=== PATIENT | male | born 1995 | race Caucasian/White ===

== ENCOUNTER 2018-09-23 21:59 | Emergency (ER) | payer SELFPAY ==
[~2018-09-23] VITALS: Ht 172.7 cm; Wt 81.6 kg
[2018-09-23 22:03] VITALS: BP 143/78
--- NOTE | 2018-09-23 22:18 | NUR ---
PT TO LOBBY WITH VSS.
--- NOTE | 2018-09-23 23:43 | NUR ---
2343---1ST CALL, PATIENT LEFT WITHOUT BEING SEEN BY DR. MEDELLIN. NO FURTHER CARE PROVIDED FOR PATIENT. 2353---2ND CALL, NO ANSWER 4---3RD CALL, NO ANSWER.
== END 2018-09-23 23:43 | disposition left against medical advice (07) ==
LOC: MED 21:59
DX: M79.672 Pain in left foot (principal); Z53.21 Procedure and treatment not carried out due to patient leaving prior to being seen by health care provider

== ENCOUNTER 2022-01-25 00:43 | Emergency (ER) | payer MEDICAID ==
[~2022-01-25] VITALS: Ht 175.3 cm; Wt 77.1 kg
[2022-01-25 00:43] VITALS: BP 131/83
--- NOTE | 2022-01-25 00:43 | NUR ---
TO BED AMBULATORY WITH C/O LEFT FOOT PAIN AND SWELLING FOR A YEAR.
[2022-01-25] MEDS ORDERED: VANCOMYCIN 1,000 MG in DEXTROSE 5% 250 ML IV ONE (00:50)
[2022-01-25] MEDS ORDERED: NACL 0.9% 2,500 ML IV ONE (00:50)
[2022-01-25] MEDS ORDERED: PIPERACILLIN/TAZOBACTAM 3.375 GM in DEXTROSE 5% 50 ML IV ONE (00:50)
--- NOTE | 2022-01-25 01:00 | NUR ---
RECEIVED IN BED 1VIA W/C AFTER BEING BROUGHT IN BY PD. C/O LLE SWELLING AND INFECTION. ULCER AND NECROSIS NOTED TO LEFT HEEL WITH MUCH SWELLING TO LLE.
[2022-01-25 01:06] LABS: BASOPHILS % (AUTO) 0.4 % (0.0-2.0); EOSINOPHILS # (AUTO) 0.1 K/uL (0-0.4); EOSINOPHILS % (AUTO) 1.3 % (0.0-4.0); HEMATOCRIT 30.1 % (36-52); HEMOGLOBIN 9.4 g/dL (12.0-18.0); LYMPHOCYTES % (AUTO) 26.3 % (20.5-51.1); MEAN CORPUSCULAR HEMOGLOBIN 21 pg (27-31); MEAN CORPUSCULAR HGB CONC 31 g/dL (33-37); MONOCYTES # (AUTO) 0.7 K/uL (0.8-1.0); MONOCYTES % (AUTO) 9.5 % (1.7-9.3); NEUTROPHILS # (AUTO) 4.9 K/uL (1.8-7.7); NEUTROPHILS % (AUTO) 62.5 % (42.2-75.2); PLATELET COUNT (AUTO) 608 K/uL (140-450); RED BLOOD CELL COUNT(AUTO) 4.57 MIL/uL (4.20-6.10); RED CELL DISTRIBUTION WIDTH 18.9 % (11.6-13.7); WHITE BLOOD COUNT (AUTO) 7.8 K/uL (4.8-10.8)
[2022-01-25 01:22] LABS: ALBUMIN 2.6 g/dL (3.4-5.0); ANION GAP 9.9 (8-16); CARBON DIOXIDE 29.6 mmol/L (21-32); CREATININE 0.8 mg/dL (0.6-1.3); POTASSIUM 3.5 mmol/L (3.5-5.1); TOTAL BILIRUBIN 0.3 mg/dL (0.0-1.0)
--- NOTE | 2022-01-25 01:55 | NUR ---
REQUESTS TO GO TO THE BATHROOM. PT STATES NEED TO HAVE BM. UP TO BR VIA W/C
--- NOTE | 2022-01-25 02:05 | NUR ---
PT DID NOT RETURN FROM BATHROOM. PT ELOPED
[2022-01-25 02:08] VITALS: BP 131/83
--- NOTE | 2022-01-25 02:08 | NUR ---
PATIENT ELOPED FROM FACILITY. DISCHARGE INSTRUCTIONS NOT GIVEN TO PATIENT. DR. mccray NOTIFIED.
== END 2022-01-25 02:08 | disposition left against medical advice (07) ==
LOC: MED 00:43
DX: M86.8X7 Other osteomyelitis, ankle and foot (principal); Z20.822 Contact with and (suspected) exposure to COVID-19; F17.210 Nicotine dependence, cigarettes, uncomplicated; F12.90 Cannabis use, unspecified, uncomplicated
CPT/HCPCS: 36415; 71045; 73700; 80053; 83605; 85025; 87040; 87426; 99285; Q0092

== ENCOUNTER 2022-01-30 22:46 | Emergency (ER) | payer MEDICAID ==
[~2022-01-30] VITALS: Ht 172.7 cm; Wt 77.1 kg
--- NOTE | 2022-01-30 22:46 | NUR ---
PT [employer], TAKEN TO CHAIR
[2022-01-30 22:47] VITALS: BP 163/102
--- NOTE | 2022-01-30 22:47 | NUR ---
ERMD ASSESSING IN [facility]
--- NOTE | 2022-01-30 22:52 | NUR ---
LAB AT BEDSIDE.
--- NOTE | 2022-01-30 23:03 | NUR ---
XRAY AT BEDSIDE
--- NOTE | 2022-01-30 23:03 | NUR ---
COVID/ERMA SWAB COLLECTED AND HANDED TO TITLE CLERK [employer]
[2022-01-30 23:10] LABS: BASOPHILS % (AUTO) 0.5 % (0.0-2.0); EOSINOPHILS # (AUTO) 0.1 K/uL (0-0.4); EOSINOPHILS % (AUTO) 0.7 % (0.0-4.0); HEMATOCRIT 31.3 % (36-52); LYMPHOCYTES # (AUTO) 1.6 K/uL (2.0-11.5); LYMPHOCYTES % (AUTO) 17.6 % (20.5-51.1); MEAN CORPUSCULAR HEMOGLOBIN 21 pg (27-31); MEAN CORPUSCULAR HGB CONC 32 g/dL (33-37); MEAN CORPUSCULAR VOLUME 66.1 fL (80-94); MONOCYTES # (AUTO) 0.7 K/uL (0.8-1.0); MONOCYTES % (AUTO) 7.1 % (1.7-9.3); NEUTROPHILS # (AUTO) 6.8 K/uL (1.8-7.7); NEUTROPHILS % (AUTO) 74.1 % (42.2-75.2); PLATELET COUNT (AUTO) 847 K/uL (140-450); RED BLOOD CELL COUNT(AUTO) 4.74 MIL/uL (4.20-6.10); WHITE BLOOD COUNT (AUTO) 9.2 K/uL (4.8-10.8)
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
[2022-01-30 23:38] LABS: ALBUMIN 2.9 g/dL (3.4-5.0); ANION GAP 13.1 (8-16); CARBON DIOXIDE 28.5 mmol/L (21-32); CREATININE 0.8 mg/dL (0.6-1.3); POTASSIUM 4.6 mmol/L (3.5-5.1); TOTAL BILIRUBIN 0.1 mg/dL (0.0-1.0)
--- NOTE | 2022-01-30 23:54 | NUR ---
PT W/C TO RR AND BACK TO BED.
--- NOTE | 2022-01-31 00:21 | NUR ---
pt pulled iv out and began getting dressed.
[2022-01-31 00:48] VITALS: BP 163/102
--- NOTE | 2022-01-31 00:48 | NUR ---
PATIENT ELOPED FROM FACILITY. DISCHARGE INSTRUCTIONS NOT GIVEN TO PATIENT. DR. ANTHONY NOTIFIED.
== END 2022-01-31 00:48 | disposition left against medical advice (07) ==
LOC: MED 22:46
DX: L03.116 Cellulitis of left lower limb (principal); Z20.822 Contact with and (suspected) exposure to COVID-19; M86.9 Osteomyelitis, unspecified; R00.0 Tachycardia, unspecified
CPT/HCPCS: 36415; 73630; 80053; 83605; 85025; 85651; 86140; 87040; 87426; 99284; Q0092

== ENCOUNTER 2022-04-24 00:23 | Emergency (ER) | payer MEDICAID ==
[~2022-04-24] VITALS: Ht 177.8 cm; Wt 79.4 kg
--- NOTE | 2022-04-24 00:23 | NUR ---
JANUARY ARREDONDO, PREBOOK. TAKEN TO CHAIR C
[2022-04-24 00:53] VITALS: BP 144/83
[2022-04-24 01:47] VITALS: BP 128/85
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
--- NOTE | 2022-04-24 01:47 | NUR ---
PATIENT [facility]. PATIENT EXAMINED BY DR. PERRY. PATIENT MEDICALLY CLEARED AND RELEASED IN CUSTODY IN STABLE CONDITION. ORIGINAL PRE-BOOK FORM GIVEN TO OFFICER MECHE #[id number].
== END 2022-04-24 01:47 ==
LOC: MED 00:23
DX: L03.116 Cellulitis of left lower limb (principal); Z02.89 Encounter for other administrative examinations
CPT/HCPCS: 99283

== ENCOUNTER 2022-05-12 16:55 | Emergency (ER) | payer MEDICAID ==
[~2022-05-12] VITALS: Ht 162.6 cm; Wt 63.5 kg
[2022-05-12 17:37] VITALS: BP 122/80
--- NOTE | 2022-05-12 18:50 | NUR ---
PT TO BED 3 VIA WC
[2022-05-12] MEDS ORDERED: PIPERACILLIN/TAZOBACTAM 3.375 GM in DEXTROSE 5% 50 ML IV ONE (19:05)
[2022-05-12] MEDS ORDERED: VANCOMYCIN 1,000 MG in DEXTROSE 5% 250 ML IV ONE (19:05)
[2022-05-12] MEDS ORDERED: NACL 0.9% 1,000 ML IV ONE (19:05)
[2022-05-12] MEDS ORDERED: ACETAMINOPHEN 325 MG TAB PO ONE (19:05)
[2022-05-12] MEDS ORDERED: PIPERACILLIN/TAZOBACTAM 3.375 GM VIAL IV ONE (19:07)
[2022-05-12 19:19] LABS: BASOPHILS # (AUTO) 0.1 K/uL (0.00-0.22); BASOPHILS % (AUTO) 0.4 % (0.0-2.0); EOSINOPHILS % (AUTO) 0.2 % (0.0-4.0); HEMATOCRIT 26.3 % (36-52); HEMOGLOBIN 8.4 g/dL (12.0-18.0); LYMPHOCYTES # (AUTO) 1.1 K/uL (2.0-11.5); LYMPHOCYTES % (AUTO) 7.5 % (20.5-51.1); MEAN CORPUSCULAR HEMOGLOBIN 21 pg (27-31); MEAN CORPUSCULAR HGB CONC 32 g/dL (33-37); MEAN CORPUSCULAR VOLUME 64.4 fL (80-94); MONOCYTES # (AUTO) 0.7 K/uL (0.8-1.0); MONOCYTES % (AUTO) 4.9 % (1.7-9.3); PLATELET COUNT (AUTO) 798 K/uL (140-450); RED BLOOD CELL COUNT(AUTO) 4.09 MIL/uL (4.20-6.10); RED CELL DISTRIBUTION WIDTH 19.7 % (11.6-13.7); WHITE BLOOD COUNT (AUTO) 14.9 K/uL (4.8-10.8)
[2022-05-12] MEDS ORDERED: NACL 0.9% 2,000 ML IV ONE (19:30)
[2022-05-12 19:36] LABS: PROTHROMBIN TIME 11.8 secs (10.8-13.4)
[2022-05-12 19:40] LABS: ALBUMIN 2.1 g/dL (3.4-5.0); ANION GAP 9.5 (8-16); CARBON DIOXIDE 30.4 mmol/L (21-32); CREATININE 0.9 mg/dL (0.6-1.3); POTASSIUM 3.9 mmol/L (3.5-5.1); TOTAL BILIRUBIN 0.3 mg/dL (0.0-1.0)
[2022-05-12] MEDS ORDERED: MORPHINE SULFATE 4 MG/ML SYR IVP ONE (19:45)
[2022-05-12] MEDS ORDERED: ONDANSETRON 4 MG/2 ML VIAL IVP ONE (19:45)
--- NOTE | 2022-05-12 19:45 | NUR ---
is awake, alert. resting comfortabloe. lle swollen and large, warm to touch
--- NOTE | 2022-05-12 20:00 | NUR ---
Ultrasound at bedside.
[2022-05-12] MEDS ORDERED: VANCOMYCIN 1,000 MG VIAL ONE (20:07)
--- NOTE | 2022-05-12 20:08 | NUR ---
X-Ray at bedside.
--- NOTE | 2022-05-12 23:20 | NUR ---
Isha judd in EDM - 05/12/22 at 2324 by MEDINA Patient discharged with v/s stable. Written and verbal after care instructions given and explained to parent/guardian. Parent/Guardian verbalized understanding. Carried. All questions addressed prior to discharge. Advised to follow up with PMD.
--- NOTE | 2022-05-12 23:49 | NUR ---
CALL TO GIVE REPORT, NURSE ON BREAK , WILL RETURN CALL IN 30 MINUTES
[2022-05-13] VITALS: BP 98/54
--- NOTE | 2022-05-13 00:35 | NUR ---
[facility] TRANSPORT AT BEDSIDE
--- NOTE | 2022-05-13 00:40 | NUR ---
[facility] IS HERE. PT NOW SAYING HE DOES NOT WANT TO GO TO [facility], IS WANTING TO SIGN AMA. DISCUSSED WITH PT, POSSIBLE OUTCOMES INCLUDING LOSS OF LIMB OR . PT EXPRESSES UNDERSTANDING AND continues to say he is leaving [facility]
--- NOTE | 2022-05-13 00:58 | NUR ---
PT SIGNED AMA FORMS AT THIS TIME
== END 2022-05-13 00:58 | disposition left against medical advice (07) ==
LOC: MED 16:55
DX: A41.9 Sepsis, unspecified organism (principal); Z20.822 Contact with and (suspected) exposure to COVID-19; L03.116 Cellulitis of left lower limb; I48.20 Chronic atrial fibrillation, unspecified; D64.9 Anemia, unspecified
CPT/HCPCS: 36415; 71045; 73620; 80053; 82550; 82553; 83605; 83874; 83880; 84484; 85025; 85610; 85730; 87040; 87426; 93971; 96365; 96367; 96375; 99291; 99292; J2270; J2405; J2543; J3370; J7030; Q0092

== ENCOUNTER 2022-05-20 11:52 | Emergency (ER) | payer MEDICAID ==
[~2022-05-20] VITALS: Ht 177.8 cm; Wt 81.6 kg
--- NOTE | 2022-05-20 12:02 | NUR ---
PT TO ER BED 3 VIA W/C WITH PD
[2022-05-20 12:03] VITALS: BP 127/77
--- NOTE | 2022-05-20 12:56 | NUR ---
ER/PA AT BEDSIDE FOR EVAL
--- NOTE | 2022-05-20 13:20 | NUR ---
27 y/o male [facility] for Pre-Book for wound check. Patient is noted with an open wound to right heel. Per patient swelling and pain started 2 weeks ago. Per patient, he had a foot surgery 1 year ago and has had s/s of infection since surgery. Medical History: Osteomylitis NKDA
--- NOTE | 2022-05-20 13:29 | NUR ---
Obtained ERMA specimen, walked to lab. Handed to CPT Idalia.
--- NOTE | 2022-05-20 13:46 | NUR ---
Lab at bedside.
--- NOTE | 2022-05-20 13:54 | NUR ---
X-Ray at bedside.
[2022-05-20 14:09] LABS: BASOPHILS % (AUTO) 0.4 % (0.0-2.0); EOSINOPHILS # (AUTO) 0.1 K/uL (0-0.4); EOSINOPHILS % (AUTO) 0.6 % (0.0-4.0); HEMATOCRIT 24.9 % (36-52); HEMOGLOBIN 7.8 g/dL (12.0-18.0); LYMPHOCYTES # (AUTO) 1.8 K/uL (2.0-11.5); MEAN CORPUSCULAR HEMOGLOBIN 20 pg (27-31); MEAN CORPUSCULAR HGB CONC 31 g/dL (33-37); MEAN CORPUSCULAR VOLUME 64.1 fL (80-94); MONOCYTES # (AUTO) 0.8 K/uL (0.8-1.0); MONOCYTES % (AUTO) 6.4 % (1.7-9.3); NEUTROPHILS # (AUTO) 9.4 K/uL (1.8-7.7); NEUTROPHILS % (AUTO) 77.6 % (42.2-75.2); RED BLOOD CELL COUNT(AUTO) 3.89 MIL/uL (4.20-6.10); RED CELL DISTRIBUTION WIDTH 19.6 % (11.6-13.7); WHITE BLOOD COUNT (AUTO) 12.2 K/uL (4.8-10.8)
[2022-05-20 14:15] LABS: PLATELET COUNT (AUTO) 896 K/uL (140-450); PROTHROMBIN TIME 11.6 secs (10.8-13.4)
[2022-05-20 14:25] LABS: ALBUMIN 1.8 g/dL (3.4-5.0); ANION GAP 9.3 (8-16); ASPARTATE AMINOTRANSFERASE 21 U/L (15-37); CARBON DIOXIDE 31.9 mmol/L (21-32); CHLORIDE 98 mmol/L (98-107); CREATININE 0.8 mg/dL (0.6-1.3); GFR ARICAN-AMERICAN 149 mL/min (>90); GLUCOSE 92 mg/dL (74-106); POTASSIUM 4.2 mmol/L (3.5-5.1); SODIUM SERUM 135 mmol/L (136-145); TOTAL BILIRUBIN 0.1 mg/dL (0.0-1.0); UREA NITROGEN, BLOOD 11 mg/dL (7-18)
--- NOTE | 2022-05-20 14:56 | NUR ---
Patient wants to go to [facility] made aware. PA at beside.
--- NOTE | 2022-05-20 15:02 | NUR ---
Patient left AMA
--- NOTE | 2022-05-20 15:08 | NUR ---
Chart checked and completed. The patient's care was reviewed and supervised by Dayna Guajardo RN.
[2022-05-20 15:15] LABS: APPEARANCE,URINE CLEAR (CLEAR); BILIRUBIN,URINE NEGATIVE (NEGATIVE); BLOOD, URINE NEGATIVE (NEGATIVE); COLOR,URINE YELLOW (YELLOW); LEUKOCYTE ESTERASE ,URINE NEGATIVE (NEGATIVE); NITRITE, URINE NEGATIVE (NEGATIVE); UGLUCOSE NEGATIVE (NEGATIVE)
== END 2022-05-20 14:56 | disposition left against medical advice (07) ==
LOC: MED 11:52
DX: L03.116 Cellulitis of left lower limb (principal); L97.429 Non-pressure chronic ulcer of left heel and midfoot with unspecified severity; Z20.822 Contact with and (suspected) exposure to COVID-19
CPT/HCPCS: 36415; 71045; 73630; 80053; 81003; 82550; 82553; 83605; 84484; 85025; 85610; 85730; 87040; 87086; 87426; 90471; 90715; 93005; 99285; Q0092